=== PATIENT | male | born 1960 | race Caucasian/White ===

== ENCOUNTER 2024-09-01 06:40 | Day surgery (SDC) | payer MEDICAID, SELFPAY ==
[2024-09-01] VITALS (10 sets, daily range): BP systolic 143–176; BP diastolic 80–104; PULSE 54–84; RESP 15–27; TEMP 36.2–36.4; O2SAT 95–100; BMI 28.9
[2024-09-01] MEDS: DiphenhydrAMINE INJ 50 MG/ML VIAL 25 MG IVP (07:24)
[2024-09-01] MEDS: SODIUM CHLORIDE 0.9% 500 ML 500 ML 100 ML IV (07:24)
[2024-09-01] MEDS: fentaNYL CIT INJ 50 mCg/ML AMP 2ML (ASD USE ONLY) IVP (07:24)
[2024-09-01] MEDS: MIDAZOLAM INJ 1 MG/ML VIAL 2 ML (ASD USE ONLY) 2 MG IVP (07:30)
[2024-09-01] MEDS: bisacodyL 10 MG SUPP PR (08:49)
--- NOTE | 2024-09-01 09:10 | SUR.PHASEII ---
at 0820 pt was assisted to the restroom pt had no complaints at this time. after pt used the restroom and got dressed he stated he has not be able to pass gas. pt assisted with walking and was offered medication to help pass the gas. pt refused and stated he rather have a carbonated drink and walk with assistance. pt was assisted with walking and helped go to the rr to try to pass some gas. at this time pt was given a suppository and was assisted to bed to help position the patient for gas relief. the positioning was successful and pt was able to expel gas and abdomen is now soft and non tender. pt states he feels ready to go home and does not have any pain. education given to pt and . both stated they understood.
== END 2024-09-01 09:03 | disposition home or self-care (01) ==
PROVIDERS: PCP Family Medicine; Referring Provider Surgery; Visit Provider Surgery
PROC: 0DBE8ZX Excision of Large Intestine, Via Natural or Artificial Opening Endoscopic, Diagnostic (ICD-10-PCS; CPT 45380; principal; 2024-09-01 07:30)
DX: Z12.11 Encounter for screening for malignant neoplasm of colon (principal); D12.3 Benign neoplasm of transverse colon; D12.4 Benign neoplasm of descending colon; K64.1 Second degree hemorrhoids; K57.30 Diverticulosis of large intestine without perforation or abscess without bleeding
CPT/HCPCS: 45385; 45380; J1200; J2250; J3010; J7999; A9270